=== PATIENT | female | born 1995 | race Caucasian/White ===

== ENCOUNTER 2017-05-19 23:03 | Emergency (ER) | payer BC ==
[~2017-05-19] VITALS: Ht 160 cm; Wt 74.7 kg
[2017-05-19 23:08] VITALS: Ht 160 cm; Wt 74.7 kg
[2017-05-19] MEDS ORDERED: DiphenhydrAMINE HCL 50 MG/ML VIAL IV STA (23:19)
[2017-05-19] MEDS ORDERED: FAMOTIDINE 20MG/5ML IV PUSH IV STA (23:19)
[2017-05-19] MEDS ORDERED: DEXAMETHASONE **PF** INJ 10 MG/ML VIAL IV ONE (23:30)
[2017-05-19] MEDS ORDERED: BUSP5TAB59 PO (23:44)
[2017-05-19] MEDS ORDERED: QUET1TAB30 PO (23:44)
[2017-05-19] MEDS ORDERED: LAMO25TA PO (23:44)
[2017-05-19] MEDS ORDERED: BUPR100T13 PO (23:44)
[2017-05-20] MEDS ORDERED: PRED50TA PO (00:55)
[2017-05-20] MEDS ORDERED: EPINEPHRINE ADULT AUTO-INJECT 0.3 MG SYR IM STA (00:59)
[2017-05-20 01:20] VITALS: BP 114/71; PULSE 69; TEMP 37.4; O2SAT 98
--- NOTE | 2017-05-20 01:59 | EMERGENCY ROOM VISIT NOTE ---
History First contact with patient: 23:13 Chief Complaint: FACIAL PAIN/INJURY Stated Complaint: TROUBLE SWALLOWING, SWOLLEN TONGUE History of Present Illness The patient is a 22 year old female who presents to the Emergency Room with complaints of tongue swelling difficulty swallowing and itching for the past day that is slightly better after taking Benadryl. Patient was placed on Augmentin a few days ago for a ingrown toenail. Patient has an allergy to penicillins. She is a history of hives from this. Patient denies chest pain, dyspnea, facial swelling, abdominal pain, vision problems, numbness, tingling, feeling of impending doom. Patient is able to swallow. Patient states she feels a lot better after the Benadryl though. No other new foods soaps or detergents. Review of Systems See HPI for pertinent positives & negatives. A total of 10 systems reviewed and were otherwise negative. Past Medical/Surgical History Bipolar, depression, anxiety Social History Smoking Status: Never Smoker Smokeless Tobacco Use: No Alcohol Use: occasionally Drug Use: none Occupation Status: [employer] student Current/Historical Medications Scheduled Bupropion Hcl (Wellbutrin), 1 TAB PO DAILY Buspirone Hcl (Buspirone Hcl), 1 TAB PO BID Lamotrigine (Lamictal), 1 TAB PO BID Prednisone (Prednisone), 50 MG PO DAILY Quetiapine Fumarate (Seroquel), 1 TAB PO DAILY Physical Exam Vital Signs Date Time Temp Pulse Resp B/P (MAP) Pulse Ox O2 Delivery O2 Flow Rate FiO2 05/20/17 01:20 37.4 69 18 114/71 98 05/20/17 01:10 69 18 114/71 98 Room Air 05/20/17 00:22 81 18 119/78 99 Room Air 05/19/17 23:47 87 05/19/17 23:35 Room Air 05/19/17 23:35 Room Air 05/19/17 23:08 37.4 95 18 143/93 99 Room Air Physical Exam VITALS: Vitals are noted on the nurse's note and reviewed by myself. Vital signs stable. GENERAL: Pleasant female speaking in full sentences maintaining her own secretions, in no acute distress, nondiaphoretic, well-developed well-nourished. SKIN: The skin was without rashes, erythema, edema, or bruising. There is no tenting of the skin. Capillary reflex less than 2 seconds. HEAD: Normocephalic atraumatic. EARS: External auditory canals clear, tympanic membranes pearly villar without erythema or effusion bilaterally. EYES: Pupils equal round and reactive to light and accommodation. Conjunctivae without injection, sclerae without icterus. Extraocular movements intact. NOSE: Patent, turbinates without inflammation or discharge. MOUTH: Mucous membranes moist. Pharynx without erythema or exudate. Uvula midline. Airway patent. Tongue does not deviate. No tongue edema. NECK: Supple without nuchal rigidity. No lymphadenopathy. No thyromegaly. Cervical spine is nontender. No JVD. HEART: Regular rate and rhythm without murmurs gallops or rubs. LUNGS: Clear to auscultation bilaterally without wheezes, rales or rhonchi. No dullness to percussion. No retractions or accessory muscle use. ABDOMEN: Positive bowel sounds x 4. Normal tympanic percussion. Soft, nontender, without masses or organomegaly. Feliciano sign negative. No guarding or rebound tenderness. MUSCULOSKELETAL: No muscle atrophy, erythema, or edema noted. NEURO: Patient was alert and oriented to person place and time. Normal sensation to light and sharp touch. No focal neurological deficits. Medical Decision & Procedures Medications Administered Medications (Trade) Dose Ordered Sig/Gentry Route Start Time Stop Time Status Last Admin Dose Admin Dexamethasone Sodium Phosphate (Dexamethasone Inj Pf) 10 mg NOW ONCE IV 05/19/17 23:30 05/19/17 23:31 DC 05/19/17 23:36 10 MG Famotidine (Pepcid 20mg Iv Push) 20 mg ONE STAT IV 05/19/17 23:19 05/19/17 23:20 DC 05/19/17 23:36 20 MG Diphenhydramine HCl (Benadryl Inj) 50 mg NOW STAT IV 05/19/17 23:19 05/19/17 23:20 DC 05/19/17 23:36 50 MG Epinephrine (Epipen) 0.3 mg NOW STAT IM 05/20/17 00:59 05/20/17 01:00 DC 05/20/17 01:15 0.3 MG ED Course Prior records/ancillary studies reviewed. Triage Nursing notes reviewed. Additional history obtained from friends The patient's history was concerning for possible allergic reaction. Differential diagnosis: Etiologies such as allergic reaction, anaphylaxis, urticaria, Bajwa-Chaitanya syndrome, toxic epidermal necrolysis, erythema multiforme, cellulitis, as well as others were entertained. Physical examination: As above. ER treatment provided: Continuous cardiac monitoring Benadryl 50 mg IV Zantac 50 mg IV Decadron 10 mg IV On reassessment the patient felt better. Diagnostic interpretation by me: Deferred It appears the patient had an allergic reaction. Patient has an allergy to penicillins. Most likely the Augmentin is triggering this current reaction. Patient was informed to stop the Augmentin. She has an appointment tomorrow to have the toenail removed. She is advised to do Epsom salt soaks and to go ahead with the procedure for the ingrown toenail. Patient states she felt much better and was completely asymptomatic. She had no current airway involvement. She did not have any symptoms when she was in the ER. Apparently this had resolved after she had taken the Benadryl. She was strongly encouraged not to take any penicillin-based antibiotics in the future and pavel this as a allergy. She is advised to return to the ER immediately for reemergence of allergic reaction, worsening signs or symptoms or as needed. Patient was neurovascularly and neurologically intact. She had no airway involvement. She is speaking in full sentences and maintaining her secretions. The above treatment did well to reverse the symptoms. After prolonged monitoring and frequent reassessments the patient did very well and symptoms resolved. The patient was counseled on the spectrum of this disease process and told to avoid potential triggers. I gave my usual and customary discussion regarding this issue. By the evaluation outlined above emergent etiologies such as recurring anaphylaxis, anaphylatic shock, airway compromise, Bajwa-Chaitanya syndrome, toxic epidermal necrolysis, erythema multiforme, infectious etiologies, as well as others were deemed relatively unlikely. The pt informed about the findings as listed above. All questions were answered and pleased with the treatment. Return instructions were outlined and the patient was discharged in stable condition. Outpatient prescription management: EpiPen prednisone Referral: The patient was referred back to primary care physician for follow-up in 2-3 days for a recheck of the current condition. Medical Decision As above Medication Reconcilliation Current Medication List: was personally reviewed by me Blood Pressure Screening Patient's blood pressure: Normal blood pressure Impression Primary Impression: Allergic reaction Departure Information Dispostion Home / Self-Care Condition GOOD Prescriptions Prednisone (Prednisone) 50 Mg Tab 50 MG PO DAILY for 4 Days, #4 TAB Prov: Blossom Tavares .SANDEEP 05/20/17 Forms HOME CARE DOCUMENTATION FORM, IMPORTANT VISIT INFORMATION Patient Instructions My [facility], ED Allergic Reaction General Other Additional Instructions Do not take penicillins or Augmentin again in the future. Pavel this as an allergy. Continue to do Epsom soaks to the foot 3 times a day. Have your toenail taken care of tomorrow. DO NOT drive, drink alcohol, operate machinery, or perform dangerous activities today. You were given medications in the ER that can affect your ability to safely function or operate a vehicle. Epi-Pen: Use one injection as instructed for severe allergic reactions associated with shortness of breath, difficulty breathing, or throat or tongue swelling. If you use this injection call 911 or proceed immediately to the nearest Emergency Room. Prednisone 50mg: Once daily until the prescription is finished. It is best to take this earlier in the day as some patients note occasional difficulty falling asleep when taken in the late evening. Diphenhydramine(Benadryl) 25mg: use 25 to 50 mg every six hours for swelling, itching, or hives. This medication is sedating and will cause drowsiness. Avoid alcohol, operating machinery or dangerous equipment, working on ladders or roofs, DRIVING, or situations where being under the influence may be dangerous. Zantac 75: Take two pills twice a day along with Benadryl as needed for swelling , itching, or hives. Most people know this for its affect on the stomach, but it also acts similar to, but less potent than Benadryl for allergic reactions. Both the Benadryl and the Zantac are available [id number]. Continue current medications. Return to the emergency department for worsening of your rash, swelling of your face, lips, tongue, or throat, difficulty breathing, vomiting, or as needed. Follow-up with your primary care physician in 2 to 3 days for a recheck of your current condition. Problem Qualifiers Primary Impression: Allergic reaction Encounter type: initial encounter Qualified Codes: T78.40XA - Allergy, unspecified, initial encounter
== END 2017-05-20 01:20 | disposition home or self-care (01) ==
LOC: C.EDB 23:07 → C.EDC 05-20 01:20
DX: T78.40XA Allergy, unspecified, initial encounter (principal); Z79.899 Other long term (current) drug therapy; X58.XXXA Exposure to other specified factors, initial encounter

== ENCOUNTER 2017-09-17 00:11 | Emergency (ER) | payer BC ==
[~2017-09-17] VITALS: Ht 162.6 cm; Wt 72.3 kg
[~2017-09-17 00:11] MED LIST: BUPR100T13 PO; BUSP5TAB59 PO; LAMO25TA PO; QUET1TAB30 PO
[2017-09-17 00:13] VITALS: TEMP 37.3; Ht 162.6 cm; Wt 72.3 kg
[2017-09-17] MEDS ORDERED: LORAZEPAM 1 MG TAB SL STA (00:39)
[2017-09-17] MEDS ORDERED: BUPR150T7 PO (00:48)
[2017-09-17 00:59] LABS: BASO % 0.4 %; BASO ABS # 0.03 K/uL (0-0.2); EOS % 0.9 %; EOS ABS # 0.06 K/uL (0-0.5); HEMATOCRIT 37.6 % (37-47); IG# 0.01 K/uL (0.00-0.02); LYMPH % 22.6 %; LYMPH ABS # 1.52 K/uL (1.2-3.4); MEAN CELL VOLUME 85.8 fL (80-100); MEAN CORPUSCULAR HGB CONC 37.2 g/dl (32-36); MEAN PLATELET VOLUME 9.2 fL (7.4-10.4); MONO % 11.6 %; MONO ABS # 0.78 K/uL (0.11-0.59); NEUT % 64.4 %; NEUT ABS # 4.34 K/uL (1.4-6.5); PLATELET COUNT 227 K/uL (130-400); RED CELL DISTRIBUTION WIDTH CV 12.2 % (11.5-14.5); RED CELL DISTRIBUTION WIDTH SD 37.9 fL (36.4-46.3); WHITE BLOOD COUNT 6.74 K/uL (4.8-10.8)
[2017-09-17 01:31] LABS: ALBUMIN 3.4 gm/dl (3.4-5.0); CALCIUM 8.1 mg/dl (8.5-10.1); CREATININE 0.82 mg/dl (0.60-1.20); POTASSIUM 3.5 mmol/L (3.5-5.1); TOTAL PROTEIN 6.1 gm/dl (6.4-8.2)
[2017-09-17 02:08] VITALS: BP 130/68; PULSE 87; O2SAT 100
[2017-09-17] MEDS ORDERED: ATIVAN 1MG HOMEPACK PO ONE (02:45)
--- NOTE | 2017-09-18 02:26 | EMERGENCY ROOM VISIT NOTE ---
History First contact with patient: 00:18 Chief Complaint: ANXIETY Stated Complaint: ANXIETY,TIGHT CHEST, PANICY History of Present Illness The patient is a 22 year old female who presents to the Emergency Room with complaints of chest discomfort, anxiety, and panic attack-like symptoms that have worsened tonight. The patient reports a long-standing history of bipolar disorder that is typically well controlled on her normal medications. Patient states that she was at work tonight when she began having worsening anxiety symptoms. She contacted her psychiatrist at some point, and was given a prescription for Atarax. This did not significantly help her symptoms, and now she presents to the ER. She does not have suicidal or homicidal ideation. No fevers or chills. She does feel like her heart is racing but she denies other symptoms. She states that she was able to sleep fairly well yesterday as well as do her normal activities of daily living this morning. Her symptoms onset within the past 12 hours. She is planning on traveling home to [place] in the morning. 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 She does not do drugs. She occasionally uses alcohol, but has not had this in the past month. Review of Systems More than 10 systems were reviewed and otherwise negative with the exception of history of present illness. Past Medical/Surgical History History of bipolar disorder Family History No pertinent family history Social History Smoking Status: Never Smoker Alcohol Use: occasionally Drug Use: none Occupation Status: [employer] student Current/Historical Medications Scheduled Bupropion Hcl (Wellbutrin Sr), 150 MG PO DAILY Buspirone Hcl (Buspirone Hcl), 30 MG PO BID Lamotrigine (Lamictal), 200 MG PO BID Quetiapine Fumarate (Seroquel), 50 MG PO HS Physical Exam Vital Signs Date Time Temp Pulse Resp B/P (MAP) Pulse Ox O2 Delivery O2 Flow Rate FiO2 09/17/17 02:08 87 18 130/68 100 Room Air 09/17/17 00:13 37.3 110 18 140/75 100 Room Air Physical Exam VITALS: Vitals are noted on the nurse's note and reviewed by myself. Vital signs stable. GENERAL: Well-developed, well-nourished, white female, who is intermittently crying and appears emotional on examination HEAD: Normocephalic atraumatic. EARS: External ear normal. External auditory canals clear, tympanic membranes pearly villar without erythema or effusion bilaterally. EYES: Pupils equal round and reactive to light and accommodation. Conjunctivae without injection, sclerae without icterus. Extraocular movements intact. NOSE: Patent, turbinates without inflammation or discharge. MOUTH: Mucous membranes moist. Tonsils are not enlarged. Pharynx without erythema, blood, or exudate. Uvula midline. Airway patent. NECK: Supple without nuchal rigidity. No lymphadenopathy. No thyromegaly. Cervical spine is nontender. HEART: Regular rate and rhythm without murmurs gallops or rubs. LUNGS: Clear to auscultation bilaterally without wheezes, rales or rhonchi. No retractions or accessory muscle use. ABDOMEN: Positive normal bowel sounds x 4. Soft, nontender, without masses or organomegaly. No guarding or rebound tenderness. MUSCULOSKELETAL: No muscle atrophy, erythema, or edema noted. Full range of motion in all extremities. No tenderness to palpation. Normal gait. Strength 5/5 throughout. NEURO: Patient was alert and oriented to person place and time. CN II through XII grossly intact. No focal neurological deficits. Deep tendon reflexes 2+ throughout. SKIN: The skin was without rashes, erythema, edema, or bruising. Capillary refill less than 2 seconds. Medical Decision & Procedures Laboratory Results 09/17/17 00:51 Red Blood Count 4.38, Mean Corpuscular Volume 85.8, Mean Corpuscular Hemoglobin 32.0, Mean Corpuscular Hemoglobin Concent 37.2, Mean Platelet Volume 9.2, Neutrophils (%) (Auto) 64.4, Lymphocytes (%) (Auto) 22.6, Monocytes (%) (Auto) 11.6, Eosinophils (%) (Auto) 0.9, Basophils (%) (Auto) 0.4, Neutrophils # (Auto ) 4.34, Lymphocytes # (Auto) 1.52, Monocytes # (Auto) 0.78, Eosinophils # (Auto ) 0.06, Basophils # (Auto) 0.03 09/17/17 00:51 Test 09/17/17 00:39 09/17/17 00:51 Urine Color DK YELLOW Urine Appearance CLEAR (CLEAR) Urine pH 5.0 (4.5-7.5) Urine Specific [place] 1.031 (1.000-1.030) Urine Protein NEG (NEG) Urine Glucose (UA) NEG (NEG) Urine Ketones TRACE (NEG) Urine Occult Blood NEG (NEG) Urine Nitrite NEG (NEG) Urine Bilirubin NEG (NEG) Urine Urobilinogen POS (NEG) Urine Leukocyte Esterase NEG (NEG) Urine Test NEG (NEG) Urine Opiates Screen NEG (NEG) Urine Methadone, Qualitative NEG (NEG) Urine Barbiturates NEG (NEG) Urine Phencyclidine (PCP) Level NEG (NEG) Ur Amphetamine/Methamphetamine NEG (NEG) MDMA (Ecstasy) Screen NEG (NEG) Urine Benzodiazepines Screen NEG (NEG) Urine Cocaine Metabolite NEG (NEG) Urine Marijuana (THC) NEG (NEG) White Blood Count 6.74 K/uL (4.8-10.8) Red Blood Count 4.38 M/uL (4.2-5.4) Hemoglobin 14.0 g/dL (12.0-16.0) Hematocrit 37.6 % (37-47) Mean Corpuscular Volume 85.8 fL (80-100) Mean Corpuscular Hemoglobin 32.0 pg (25-34) Mean Corpuscular Hemoglobin Concent 37.2 g/dl (32-36) Platelet Count 227 K/uL (130-400) Mean Platelet Volume 9.2 fL (7.4-10.4) Neutrophils (%) (Auto) 64.4 % Lymphocytes (%) (Auto) 22.6 % Monocytes (%) (Auto) 11.6 % Eosinophils (%) (Auto) 0.9 % Basophils (%) (Auto) 0.4 % Neutrophils # (Auto) 4.34 K/uL (1.4-6.5) Lymphocytes # (Auto) 1.52 K/uL (1.2-3.4) Monocytes # (Auto) 0.78 K/uL (0.11-0.59) Eosinophils # (Auto) 0.06 K/uL (0-0.5) Basophils # (Auto) 0.03 K/uL (0-0.2) RDW Standard Deviation 37.9 fL (36.4-46.3) RDW Coefficient of Variation 12.2 % (11.5-14.5) Immature Granulocyte % (Auto) 0.1 % Immature Granulocyte # (Auto) 0.01 K/uL (0.00-0.02) Anion Gap 6.0 mmol/L (3-11) Est Creatinine Clear Calc Drug Dose 106.7 ml/min Estimated GFR () 119.4 Estimated GFR (Non- 103.0 BUN/Creatinine Ratio 9.4 (10-20) Calcium Level 8.1 mg/dl (8.5-10.1) Total Bilirubin 1.0 mg/dl (0.2-1) Aspartate Amino Transf (AST/SGOT) 14 U/L (15-37) Alanine Aminotransferase (ALT/SGPT) 18 U/L (12-78) Alkaline Phosphatase 45 U/L (45-117) Total Protein 6.1 gm/dl (6.4-8.2) Albumin 3.4 gm/dl (3.4-5.0) Globulin 2.7 gm/dl (2.5-4.0) Albumin/Globulin Ratio 1.3 (0.9-2) Thyroid Stimulating Hormone (TSH) 2.390 uIu/ml (0.300-4.500) Salicylates Level < 1.7 mg/dl (2.8-20) Acetaminophen Level < 2 ug/ml (10-30) Medications Administered Medications (Trade) Dose Ordered Sig/Gentry Route Start Time Stop Time Status Last Admin Dose Admin Lorazepam (Ativan Tab) 1 mg NOW STAT SL 09/17/17 00:39 09/17/17 00:42 DC 09/17/17 00:48 1 MG Lorazepam (Ativan 1MG Home Pack) 1 homepack UD ONCE PO 09/17/17 02:45 09/17/17 02:46 DC 09/17/17 02:42 1 HOMEPACK ED Course Physical exam and history were performed. Nursing notes, EMR, and Medication List were personally reviewed. Patient appears to have anxiety symptoms that have worsened over the past several hours. The patient is well spoken and seems very aware of her mental health condition. On examination she is intermittently crying but very cooperative with the examination. I discussed options of care with her, and she was willing to trial Ativan orally. Blood work was obtained and we were able to obtain a urine sample. Patient's blood work is as above and was reviewed. She does not have a significantly elevated white blood cell count, gross anemia, bandemia, or significant electrolyte imbalance. Lipase and transaminases are not diagnostic. TSH is euthyroid state. Urine was without evidence of infection or . Drug of abuse screen was negative. Tylenol and salicylates were 0. The patient was much improved after Ativan here in the department. I did ask the mental health liaison to evaluate the patient, which was performed. Please see their note for specifics. Overall we do not feel the patient requires involuntary admission. The patient herself feels comfortable with discharge home and does not wish to stay here in the hospital. She will be given a home pack of Ativan to help with the acute anxiety symptoms. The patient does have good resources as an outpatient, and is comfortable with contacting her providers in the morning. The patient understands that she is invited back to the ER with any new, worsening, or concerning symptoms. She was pleased with this plan and voiced understanding. The chart was completed utilizing [employer] Speech Voice Recognition Software. Grammatical errors, random word insertions, pronoun errors, and incomplete sentences are an occasional consequence of this system due to software limitations, ambient noise, and hardware issues. Any formal questions or concerns about the content, text, or information contained within the body of this dictation should be directly addressed to the provider for clarification. . Medical Decision Differential diagnosis: Etiologies such as mood disorder, infection, hypoglycemia, electrolyte abnormalities, cardiac sources, intracerebral event, toxicologic, neurologic, as well as others were entertained. Impression Primary Impression: Anxiety Departure Information Dispostion Home / Self-Care Condition GOOD Forms HOME CARE DOCUMENTATION FORM, IMPORTANT VISIT INFORMATION Patient Instructions My [facility] Additional Instructions You were seen and evaluated today on an emergency basis only. This is not a substitute for, or an effort to provide, complete comprehensive medical care. It is not possible to recognize and treat all injuries or illnesses in a single emergency department visit. For this reason it is recommended that you followup with your providers for ongoing care and evaluation. Consider using Ativan 1/2 to 1 full pill every 8 hours as needed for symptoms. Do not drink or drive while on this medication as it will make you tired. You are welcome to return to the emergency department anytime with new, worsening, or concerning symptoms.
== END 2017-09-17 02:43 | disposition home or self-care (01) ==
LOC: C.EDB 00:12
DX: F41.9 Anxiety disorder, unspecified (principal); F31.9 Bipolar disorder, unspecified; Z79.899 Other long term (current) drug therapy

== ENCOUNTER 2019-01-28 13:36 | Observation (INO) ==
[2019-01-28] MEDS ORDERED: SODIUM CHLORIDE 0.9% 1000ML 1,000 ML IV ONE (14:49)
[2019-01-28] MEDS ORDERED: ONDANSETRON INJ 2 MG/ML 2 ML VIAL IV STA (14:49)
[2019-01-28] MEDS ORDERED: KETOROLAC TROMETHAMINE 15 MG/ML VIAL IV STA (14:49)
[2019-01-28 15:36] LABS: Basophils # (auto) 0.02 K/uL (0-0.2); Basophils % (auto) 0.1 %; Eosinophils # (auto) 0.01 K/uL (0-0.5); Eosinophils % (auto) 0.1 %; Hematocrit (blood only) 40.8 % (37-47); Hemoglobin 14.8 g/dL (12.0-16.0); Immature Granulocytes # (auto) 0.03 K/uL (0.00-0.02); Immature Granulocytes % (auto) 0.2 %; Lymphocytes # (auto) 0.67 K/uL (1.2-3.4); Lymphocytes % (auto) 4.9 %; Mean Corpuscular Hemoglobin 32.5 pg (25-34); Mean Corpuscular Hgb Conc 36.3 g/dL (32-36); Mean Corpuscular Volume 89.5 fL (80-100); Mean Platelet Volume 9.9 fL (7.4-10.4); Monocytes # (auto) 0.97 K/uL (0.11-0.59); Monocytes % (auto) 7.2 %; Neutrophils # (auto) 11.85 K/uL (1.4-6.5); Neutrophils % (auto) 87.5 %; Platelet Count 257 K/uL (130-400); RDW Coefficient of Variation 12.1 % (11.5-14.5); RDW Standard Deviation 38.8 fL (36.4-46.3); Red Blood Count 4.56 M/uL (4.2-5.4); White Blood Count 13.55 K/uL (4.8-10.8)
[2019-01-28 15:42] LABS: Albumin Level 3.9 gm/dl (3.4-5.0); BUN Creatinine Ratio 10.9 (10-20); Calcium 8.8 mg/dl (8.5-10.1); Creatinine Clr Calc Pharmacy 107.5 ml/min; Est GFR (Non-African American) 108.7; Potassium 3.6 mmol/L (3.5-5.1)
[2019-01-28 15:45] LABS: Albumin Globulin Ratio 1.3 (0.9-2); Bilirubin,Total 1.6 mg/dl (0.2-1); Globulin 3.1 gm/dl (2.5-4.0)
[2019-01-28] MEDS ORDERED: IOVERSOL 100ml IV PRN (17:02)
--- NOTE | 2019-01-28 17:11 | CT Scan Report ---
CT OF THE ABDOMEN AND PELVIS WITH CONTRAST CLINICAL HISTORY: Right lower quadrant abdominal pain, fever and vomiting. COMPARISON STUDY: None. TECHNIQUE: Following IV administration of 89 mL of Optiray-320, axial images of the abdomen and pelvi s were obtained from the lung bases to the proximal femurs. Images were reviewed in the axial, sagitt al, and coronal planes. IV contrast was administered without complication. Automated exposure contro l was utilized for the study. A dose lowering technique was utilized adhering to the principles of A TIMOTHY. CT DOSE: 352.48 mGy.cm FINDINGS: Lung bases are clear. No pneumatosis, free air or portal venous gas is present. The liver, spleen, adrenal glands, kidneys and pancreas are normal. There is no biliary or pancreatic ductal dil atation. There is no hydronephrosis. Nephrograms are symmetric. Major vasculature is patent. A small amount of fluid within the pelvis is noted. The appendix is mildly dilated, measuring 8 mm in caliber . The appendix is fluid-filled. There is suggestion of minimal adjacent infiltration. The appendix is located along the medial aspect of the right iliac vessels. No abscess or free air is noted. There i s no evidence for a bowel obstruction. No suspicious osseous lesions are noted. IMPRESSION: 1. Mildly dilated appendix with minimal adjacent infiltration. The findings suggest early acute appen dicitis. No free air or abscess. 2. Small amount of fluid within the pelvis. Electronically signed by: Ming Alvarez M.D. 01/28/2019 5:10 PM
--- NOTE | 2019-01-28 17:23 | Emergency Department Note ---
Entered by Tali Love acting as a scribe for Barrington Navarro MD History of Present Illness General Chief complaint: Abdominal Pain Stated complaint: VOMITING, RLQ PAIN, FEVER Time Seen by Provider: 01/28/19 14:40 Source: patient History of Present Illness Onset (ago): hour(s) 10 Location: abdomen Radiation: non-radiation Severity: severe and similar to prior episodes Pain Consistency: + other (Worsening) Maximum Pain Intensity: 10 Quality: + other (Abdominal pain) Associated symptoms: + fever/chills, + loss of appetite and + nausea/vomiting; no other (Diarrhea) Treatments prior to arrival: none The patient is a 23 year old female who presents to the Emergency Department complaining of worsening abdominal pain starting 10 hours ago. The patient reports that she has severe, non-radiating, lower middle abdominal pain. 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 She explains that she is nauseous and has vomited. She currently rates her pain 7/10. She notes that she has lost her appetite. She adds that she was in the ED earlier today at 0900 for similar symptoms. The patient reports that when she was in the ED today she had an US and a urine analysis that was negative. She states that since leaving the hospital this morning her temperature increased and she began to vomit. She adds that she took no medications for her symptoms BARTENDER SERVER. The patient denies diarrhea, eating anything abnormal, history of abdominal surgeries and history DM. Home Medications Home Medications Medication Instructions Recorded Confirmed Type bupropion HCl [Wellbutrin SR] 100 mg PO DAILY 02/18/18 01/28/19 History buspirone 30 mg PO BID 02/18/18 01/28/19 History lamotrigine 200 mg PO BID 02/18/18 01/28/19 History clonazepam 0.5 mg PO BID PRN 01/28/19 01/28/19 History famotidine 20 mg PO BID #20 tab 01/28/19 01/28/19 Rx prochlorperazine maleate 10 mg PO Q6H PRN #14 tab 01/28/19 01/28/19 Rx Allergies Allergy/AdvReac Type Severity Reaction Status Date / Time Penicillins Allergy Severe rash Verified 01/28/19 10:45 pseudoephedrine Allergy Severe hallucinati Verified 01/28/19 10:45 ons Past Med/Surg History Medical History Anxiety (Acute) Bipolar disorder Family History Other No pertinent family history in first degree relatives Social History Preferred Language: Dominican Epoxy Specialist Required: No Beliefs That Will Affect Care: None Current Living Situation Comment: 2 roommates current occupational status: student Other Information That Helps Us Care for You: No Feels Safe at Home: Yes Safety Concerns: Feels Safe At This Time Smoking Status: Never smoker Do You Dip or Chew Tobacco: No ; Second Hand Exposure: No ; Tobacco Cessation Education Requested by Patient: No Hx Alcohol Use: Yes Hx Substance Use: No Review of Systems See HPI for pertinent positives & negatives. and A total of 10 systems reviewed and were otherwise negative Physical Exam Vital Signs Vital Signs - 24 hr 01/28/19 13:43 01/28/19 16:26 01/28/19 17:35 Temperature 37 C Temperature Source Oral Sepsis Recent Fever Within 48 Hours No Sepsis New/Unexplained Change in Mental Status No Sepsis Action Taken by Nursing No Action Required Pulse Rate 101 H Pulse Rate [Right Finger] 73 76 Pulse Rhythm [Right Finger] Regular Pulse Strength [Right Finger] Normal Respiratory Rate 20 20 20 Respiratory Effort / Characteristics Non-Labored Spontaneous Non-Labored Spontaneous Respiratory Depth Normal Normal Respiratory Pattern Regular Regular Blood Pressure 123/97 Blood Pressure [Right Arm] 107/63 127/86 Blood Pressure Mean 105 Blood Pressure Mean [Right Arm] 77 99 Pulse Oximetry 97 100 97 Oxygen Delivery Method Room Air Room Air Room Air 01/28/19 18:20 Temperature Temperature Source Sepsis Recent Fever Within 48 Hours Sepsis New/Unexplained Change in Mental Status Sepsis Action Taken by Nursing Pulse Rate Pulse Rate [Right Finger] 70 Pulse Rhythm [Right Finger] Pulse Strength [Right Finger] Respiratory Rate 20 Respiratory Effort / Characteristics Non-Labored Spontaneous Respiratory Depth Normal Respiratory Pattern Blood Pressure Blood Pressure [Right Arm] 132/85 Blood Pressure Mean Blood Pressure Mean [Right Arm] 100 Pulse Oximetry 98 Oxygen Delivery Method Room Air GENERAL: Patient is in no acute distress. HEENT: No acute trauma, normocephalic atraumatic, mucous membranes moist, no nasal congestion, no scleral icterus. NECK: No stridor, no adenopathy, no meningismus, trachea is midline. LUNGS: Clear to auscultation bilaterally, no wheeze, no rhonchi, breath sounds equal. HEART: Without murmurs gallops or rubs, regular rate and rhythm. ABDOMEN: Moderately tender in RLQ. Mildly tender in the LLQ. Soft, bowel sounds positive, no hernias, no peritonitis. EXTREMITIES: No cyanosis or edema, full range of motion of all the joints without pain or difficulty, no signs for acute trauma. NEUROLOGIC: Oriented x 3, no acute motor or sensory deficits, no focal weakness. SKIN: No rash, no jaundice, no diaphoresis. Course 1441: The patient was evaluated in room C2B, and a complete history and physical examination were performed. 1446: EMR reviewed. UA from today was negative for infection or blood. testing negative. When the patient was here this morning she did not have a fever and was not tachycardic. 1710: I discussed the patient's case with Dr. Millan - general surgeon. He will evaluate the patient for further management. 1718: I reevaluated the patient at this time. I updated her on her imaging studies. Consultations Consultation #1: I discussed the patient's case with Dr. Millan - general surgeon. He will evaluate the patient for further management. Time: 17:10 Administered Medications Buspirone HCl (Buspar) 30 mg PO BID VARSHA Stop: 02/27/19 20:59 Last Admin: 01/28/19 21:43 Dose: 30 mg Documented by: [id number] Famotidine (Pepcid) 20 mg PO BID VARSHA Stop: 02/27/19 20:59 Last Admin: 01/28/19 21:45 Dose: 20 mg Documented by: [id number] Lactated Ringer's (Lr) 1,000 mls @ 125 mls/hr IV .Q8H VARSHA Stop: 02/27/19 20:29 Last Admin: 01/28/19 21:35 Dose: 125 mls/hr Documented by: [id number] Ioversol (Optiray 320 100ml) 89 ml IV ONCE PRN PRN Reason: Interaction Checking Stop: 02/01/19 17:01 Last Admin: 01/28/19 17:02 Dose: 89 ml Documented by: [id number] Lamotrigine (Lamictal) 200 mg PO BID VARSHA Stop: 02/27/19 20:59 Last Admin: 01/28/19 21:44 Dose: 200 mg Documented by: [id number] Oxycodone/Acetaminophen (Percocet 5mg/325mg) 2 tab PO Q4H PRN PRN Reason: SEVERE Pain (Scale 7,8,9,10) Stop: 02/11/19 20:29 Last Admin: 01/28/19 21:36 Dose: 2 tab Documented by: [id number] Discontinued Medications Bupivacaine HCl/Epinephrine Bitart (Sensorcaine/Epinephrine 0.5% Mpf 1:200,000) Confirm Administered Dose 30 ml .ROUTE .STK-MED ONE Stop: 01/28/19 17:42 Last Admin: 01/28/19 19:27 Dose: 20 ml Documented by: [id number] Sodium Chloride (Nss 1000ml) 1,000 mls @ 999 mls/hr IV .Q1H1M ONE Stop: 01/28/19 15:49 Last Infusion: 01/28/19 21:20 Dose: 0 mls/hr Documented by: [id number] Admin: 01/28/19 15:19 Dose: 999 mls/hr Documented by: [id number] Clindamycin Phosphate (Cleocin) 600 mg in 54 mls @ 100 mls/hr IV ONCE VARSHA Stop: 01/29/19 19:29 Last Infusion: 01/28/19 21:20 Dose: 0 mls/hr Documented by: [id number] Admin: 01/28/19 18:57 Dose: 100 mls/hr Documented by: [id number] Ketorolac Tromethamine (Toradol) 15 mg IV NOW STA Stop: 01/28/19 14:50 Last Admin: 01/28/19 15:18 Dose: 15 mg Documented by: [id number] Ondansetron HCl (Zofran) 4 mg IV NOW STA Stop: 01/28/19 14:50 Last Admin: 01/28/19 15:18 Dose: 4 mg Documented by: [id number] Medical Decision Making Differential Diagnosis Differentials include appendicitis, diverticulitis, biliary colic UTI, PID, ovarian cyst, viral illness, food borne ill and dehydration amongst others. Medical Records Attestation: I reviewed the patient's medical records. Home Medications Current Medication List: was personally reviewed by me Laboratory Data Attestation: I reviewed the patient's lab results. Result diagrams: 01/28/19 15:07 01/28/19 15:07 Lab Results 01/28/19 01/28/19 Range/Units 15:07 15:07 WBC 13.55 H (4.8-10.8) K/uL RBC 4.56 (4.2-5.4) M/uL Hgb 14.8 (12.0-16.0) g/dL Hct 40.8 (37-47) % MCV 89.5 (80-100) fL MCH 32.5 (25-34) pg MCHC 36.3 H (32-36) g/dL RDW Std Deviation 38.8 (36.4-46.3) fL RDW Coeff of Pamela 12.1 (11.5-14.5) % Plt Count 257 (130-400) K/uL MPV 9.9 (7.4-10.4) fL Immature Gran % (Auto) 0.2 % Neut % (Auto) 87.5 % Lymph % (Auto) 4.9 % Major % (Auto) 7.2 % Eos % (Auto) 0.1 % Baso % (Auto) 0.1 % Immature Gran # (Auto) 0.03 H (0.00-0.02) K/uL Neut # (Auto) 11.85 H (1.4-6.5) K/uL Lymph # (Auto) 0.67 L (1.2-3.4) K/uL Major # (Auto) 0.97 H (0.11-0.59) K/uL Eos # (Auto) 0.01 (0-0.5) K/uL Baso # (Auto) 0.02 (0-0.2) K/uL Sodium 140 (136-145) mmol/L Potassium 3.6 (3.5-5.1) mmol/L Chloride 106 (98-107) mmol/L Carbon Dioxide 25 (21-32) mmol/L Anion Gap 9.0 (3-11) BUN 8 (7-18) mg/dl Creatinine 0.78 (0.6-1.2) mg/dl Est Cr Clr Drug Dosing 107.5 ml/min Est GFR ( Amer) 126.0 Est GFR (Non-Af Amer) 108.7 BUN/Creatinine Ratio 10.9 (10-20) Glucose 90 (70-99) mg/dl Calcium 8.8 (8.5-10.1) mg/dl Total Bilirubin 1.6 H (0.2-1) mg/dl AST 7 L (15-37) U/L ALT 18 (12-78) U/L Alkaline Phosphatase 63 (45-117) U/L Total Protein 7.0 (6.4-8.2) gm/dl Albumin 3.9 (3.4-5.0) gm/dl Globulin 3.1 (2.5-4.0) gm/dl Albumin/Globulin Ratio 1.3 (0.9-2) Lipase 81 (73-393) U/L Imaging Data Radiologist's Impression: Radiology results as stated below per my review and the radiologist's interpretation: CT OF THE ABDOMEN AND PELVIS WITH CONTRAST CLINICAL HISTORY: Right lower quadrant abdominal pain, fever and vomiting. COMPARISON STUDY: None. TECHNIQUE: Following IV administration of 89 mL of Optiray-320, axial images of the abdomen and pelvis were obtained from the lung bases to the proximal femurs. Images were reviewed in the axial, sagittal, and coronal planes. IV contrast was administered without complication. Automated exposure control was utilized for the study. A dose lowering technique was utilized adhering to the principles of ALARA. CT DOSE: 352.48 mGy.cm FINDINGS: Lung bases are clear. No pneumatosis, free air or portal venous gas is present. The liver, spleen, adrenal glands, kidneys and pancreas are normal. There is no biliary or pancreatic ductal dilatation. There is no hydronephrosis. Nephrograms are symmetric. Major vasculature is patent. A small amount of fluid within the pelvis is noted. The appendix is mildly dilated, measuring 8 mm in caliber. The appendix is fluid-filled. There is suggestion of minimal adjacent infiltration. The appendix is located along the medial aspect of the right iliac vessels. No abscess or free air is noted. There is no evidence for a bowel obstruction. No suspicious osseous lesions are noted. IMPRESSION: 1. Mildly dilated appendix with minimal adjacent infiltration. The findings suggest early acute appendicitis. No free air or abscess. 2. Small amount of fluid within the pelvis. Electronically signed by: Ming Villalpando Blood Pressure Blood Pressure Findings: Elevated blood pressure Blood Pressure Disposition: further management by hospitalist [facility] Narrative There is a mild leukocytosis, this could be consistent with infection. No concerning anemia. Bilirubin was mildly elevated, the rest of the LFTs were normal. There was no evidence for pancreatitis. Urinalysis from earlier today did not show infection. The testing was negative. Patient was tender in the right lower quadrant. A CT of the abdomen pelvis was performed, she does have a appendicitis based on the CT reading. There was no abscess or rupture. Patient received IV saline, she was given IV Toradol, IV Zofran, she is comfortable. I spoke to the patient about her findings, case management has been made aware. The on-call surgeon has been consulted. Impression & Plan Acute appendicitis, Abdominal pain, RLQ, Leukocytosis Discharge Plan Visit Data *Final* Discharge Date/Time: 01/28/19 18:22 Chief Complaint: Abdominal Pain Stated Complaint: VOMITING, RLQ PAIN, FEVER ED Provider: Barrington Navarro Discharge Problem: Acute appendicitis, Abdominal pain, RLQ, Leukocytosis Patient Disposition: Admitted As Inpatient Discharge Instructions Interventions: ED Discharge Assessment Last Done: 01/28/19 18:22 Discharge Problem: Acute appendicitis Qualifiers: Acute appendicitis type: unspecified acute appendicitis type Qualified Code(s): K35.80 - Unspecified acute appendicitis Leukocytosis Qualifiers: Leukocytosis type: unspecified Qualified Code(s): D72.829 - Elevated white blood cell count, unspecified The scribe's documentation has been prepared under my direction and personally reviewed by me in its entirety. I confirm that the note above accurately reflects all work, treatment, procedures, and medical decision making performed by me.
[2019-01-28] MEDS ORDERED: BUPIVACAINE/EPINEPHRINE 0.5% MPF 1:200,000 30 ML VIAL ONE (17:41)
[2019-01-28] MEDS ORDERED: GLYCOPYRROLATE 0.2 MG/ML VIAL ONE (18:04)
[2019-01-28] MEDS ORDERED: fentaNYL citrate 100 MCG/2 ML VIAL ONE ×2 (18:04→19:23)
[2019-01-28] MEDS ORDERED: MIDAZOLAM HCL 1 MG/ML 2ML VIAL ONE (18:04)
[2019-01-28] MEDS ORDERED: PROPOFOL IV EMULSION 10 MG/ML 20 ML VIAL IV ONE (18:04)
[2019-01-28] MEDS ORDERED: ROCURONIUM BROMIDE 10 MG/ML 5 ML VIAL ONE (18:04)
[2019-01-28] MEDS ORDERED: DEXAMETHASONE SOD INJ 4 MG/ML VIAL ONE (18:04)
[2019-01-28] MEDS ORDERED: SUCCINYLCHOLINE CHLORIDE 20 MG/ML 10 ML VIAL ONE (18:04)
[2019-01-28] MEDS ORDERED: ONDANSETRON INJ 2 MG/ML 2 ML VIAL ONE (18:04)
--- NOTE | 2019-01-28 18:13 | History & Physical Report ---
Date of Service January 28, 2019 Assessment & Plan (1) Acute appendicitis: I spoke to her and her mother. We discussed options as well as risks of the procedure which would include bleeding, infection, DVT, PE, injury to another organ, staple line leaks etc. Following all this I answered their questions. We will proceed POONAM for laparoscopic possible open appendectomy. 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 She presents this afternoon to the emergency room where work-up has revealed acute appendicitis on CAT scan. Allergies Allergy/AdvReac Type Severity Reaction Status Date / Time Penicillins Allergy Severe rash Verified 01/28/19 10:45 pseudoephedrine Allergy Severe hallucinati Verified 01/28/19 10:45 ons Home Medications Home Medications Medication Instructions Recorded Confirmed Type bupropion HCl [Wellbutrin SR] 100 mg PO DAILY 02/18/18 01/28/19 History buspirone 30 mg PO BID 02/18/18 01/28/19 History lamotrigine 200 mg PO BID 02/18/18 01/28/19 History clonazepam 0.5 mg PO BID PRN 01/28/19 01/28/19 History famotidine 20 mg PO BID #20 tab 01/28/19 01/28/19 Rx prochlorperazine maleate 10 mg PO Q6H PRN #14 tab 01/28/19 01/28/19 Rx Past Med/Surg History Medical History Anxiety (Acute) Bipolar disorder Family History Other No pertinent family history in first degree relatives Social History current occupational status: student Feels Safe at Home: Yes Smoking Status: Never smoker Review of Systems All systems reviewed & are unremarkable except as noted in HPI & below Physical Exam Constitutional: WD/WN, vitals as above no acute distress and not ill appearing Eyes: PERRL, conjunctivae normal, anicteric sclerae EOM intact bilaterally ENMT: external ear and nose normal, oropharynx normal Ears: no hearing impairment Neck: trachea midline, no thyromegaly Respiratory: normal respiratory effort; no respiratory distress and does not use accessory muscles Cardiovascular: Rate/Rhythm: regular rate and regular rhythm Gastrointestinal (Abdomen): soft. +RLQ ttp. +guarding/rovsings Skin: no rashes, warm and dry Psychiatric: Orientation: alert, oriented x 3 and cooperative Results & Data Vital Signs (Past 12 Hours) Vital Signs Temp Pulse Pulse Resp BP BP Pulse Ox 01/28/19 17:35 76 20 127/86 97 01/28/19 16:26 73 20 107/63 100 01/28/19 13:43 37 C 101 H 20 123/97 97
--- NOTE | 2019-01-28 18:16 | Anesthesiology Consultation ---
Date of Service January 28, 2019 Assessment & Plan (1) Encounter for pre-operative examination: Chart Review Chart Review: Acceptable Risk for Surgery and Patient NOT seen in Pre Admission Testing Consults Requested none ASA [id number] Proposed Anesthesia Anesthesia Type: General Risk / Benefits Reviewed With: PT / POA / Parent / Guardian, Accepts Plan and Informed Consent Obtained History Surgery Operation Date: 01/28/19 14:25 Proposed Procedures p Laparoscopic Appendectomy - Joshua Millan, DO Height/Weight Height: 5 ft 4 in Weight: 67.2 kg Allergies Allergy/AdvReac Type Severity Reaction Status Date / Time Penicillins Allergy Severe rash Verified 01/28/19 10:45 pseudoephedrine Allergy Severe hallucinati Verified 01/28/19 10:45 ons Medications Home Medications Medication Instructions Recorded Confirmed Last Taken bupropion HCl [Wellbutrin SR] 100 mg PO DAILY 02/18/18 01/28/19 01/28/19 buspirone 30 mg PO BID 02/18/18 01/28/19 01/28/19 lamotrigine 200 mg PO BID 02/18/18 01/28/19 01/28/19 clonazepam 0.5 mg PO BID PRN 01/28/19 01/28/19 Unknown famotidine 20 mg PO BID #20 tab 01/28/19 01/28/19 Unknown prochlorperazine maleate 10 mg PO Q6H PRN #14 tab 01/28/19 01/28/19 Unknown Active Medications Generic Name Dose Route Start Last Admin Trade Name Freq PRN Reason Stop Dose Admin Ioversol 89 ml 01/28/19 17:02 01/28/19 17:02 Optiray 320 100ml IV 02/01/19 17:01 89 ml ONCE PRN Administration Interaction Checking NPO Date Last Intake of Fluids: 01/28/19 Time Last Intake of Fluids: 06:00 Date Last Intake of Solids: 01/27/19 Time Last Intake of Solids: 15:00 Past Medical History Medical History Anxiety (Acute) Bipolar disorder Exercise / Class Metabolic Activity II 4-5 Yardwork/Stairs/Walk up hill Past Family History Family History Other No pertinent family history in first degree relatives Past Anesthesia History No Hx of Anesthesia Complications and No Family Hx of Anesthesia Complications History of PONV No Hx of PONV and No Hx of Motion Sickness Social History Smoking Status: Never smoker Do You Dip or Chew Tobacco: No Hx Alcohol Use: No Hx Substance Use: No Physical Exam Vital Signs Last Vital Signs Temp 37 C 01/28/19 13:43 Pulse 70 01/28/19 18:20 Resp 20 01/28/19 18:20 BP 132/85 01/28/19 18:20 Pulse Ox 98 01/28/19 18:20 Testing Laboratory Results 01/28/19 15:07 01/28/19 15:07 hcg 01/28/10 negative
[2019-01-28] MEDS ORDERED: fentaNYL citrate 100 MCG/2 ML VIAL IV PRN (18:39)
[2019-01-28] MEDS ORDERED: ATROPINE SULFATE 0.1 MG/ML 10ML SYR IV PRN (18:39)
[2019-01-28] MEDS ORDERED: HYDROmorphone INJ 1 MG/ML SYRINGE IV PRN ×2 (18:39→20:30)
[2019-01-28] MEDS ORDERED: ONDANSETRON INJ 2 MG/ML 2 ML VIAL IV PRN ×2 (18:39→20:30)
[2019-01-28] MEDS ORDERED: CLINDAMYCIN PHOS 300 MG/2 ML VIAL ONE (18:55)
[2019-01-28] MEDS ORDERED: CLINDAMYCIN 600 MG/54 ML BAG IV SCH (19:30)
--- NOTE | 2019-01-28 19:41 | Operative Report ---
PG Post Operative Report Pre & Post Diagnosis Operation Date: 01/28/19 14:25 Pre-Op Diagnosis: Acute Appendicitis Post-Op Diagnosis: Acute Appendicitis Procedure Operation Date: 01/28/19 14:25 Actual Procedures p Laparoscopic Appendectomy(Not Applicable) - Joshua Millan DO Surgeon Joshua Millan DO Echocardiography Technologist n/a Estimated Blood Loss 2 Findings Consistent with Post-Op Diagnosis Specimens appendix Description of Procedure After informed consent was obtained the patient was taken to the operating room and placed in supine position. After successful intubation a Rodriguez catheter was placed and the left arm was tucked. A Rodriguez catheter was inserted sterilely. I began by making a periumbilical incision with an 11 blade scalpel and carried this down through the soft tissue using electrocautery. The anterior rectus fascia was opened using electrocautery and 2 #0 Vicryl stay sutures were placed. The peritoneum was elevated using hemostats and incised under direct vision using a Metzenbaum scissor. A finger sweep was performed. A 12 mm Nguyen trocar was placed and the abdomen was insufflated to 18 mmHg. A laparoscope was inserted and the abdomen was examined in 360. A suprapubic 5 mm port and a left lower quadrant 12 mm port were placed under direct vision. The patient was air planed to the left as well as placed in a slight Trendelenburg position. We began by looking in the right lower quadrant. We were able to readily identify the appendix and it was grossly inflamed. It had not perforated. There is a small amount of purulent fluid in the right lower quadrant and the pelvis. We immediately irrigated and suctioned this out. I was able to use primarily blunt dissection to pull the appendix away from the right lower quadrant sidewall. I was then able to use a ERIC brown cartridge stapler to transect the mesoappendix up to the base of the appendix itself. Next I was able to transect the appendix right at its junction with the cecum again with a ERIC 60 mm brown cartridge stapler. It was then placed into an Endo Catch bag and removed from the camera port site. We thoroughly irrigated the right lower quadrant as well as the pelvis. There was adequate hemostasis. I ran the small bowel backwards from the terminal ileum for about 6 feet all of which was normal. All the peritoneal surfaces were normal. Small/ large bowel, liver, stomach etc. all appeared grossly normal. We did a final irrigation and then removed all the trochars and desufflated the abdomen. The fascia of the camera port as well as the left lower quadrant were closed using 0 Vicryl in [id number] fashion. Wounds were all irrigated and closed using 4-0 Monocryl. Marcaine was injected around them for postoperative analgesia and skin glue used as a dressing. The patient was awakened extubated and transferred to recovery in stable condition. I attest to the content of the Intraoperative Record and any orders documented therein. Any exceptions are noted below.
[2019-01-28] MEDS ORDERED: ACETAMINOPHEN 1,000 MG/100 ML VIAL IV PRN (20:30)
[2019-01-28] MEDS ORDERED: PROCHLORPERAZINE MALEATE 10 MG TAB PO PRN (20:30)
[2019-01-28] MEDS ORDERED: IBUPROFEN 600 MG TAB PO PRN (20:30)
[2019-01-28] MEDS ORDERED: clonazePAM 0.5 MG TAB PO PRN (20:30)
[2019-01-28] MEDS ORDERED: HYDROmorphone INJ 0.5 MG/0.5 ML SYR IV PRN (20:30)
[2019-01-28] MEDS: LACTATED RINGER'S 1,000 ML IV SCH (21:35)
[2019-01-28] MEDS: OXYCODONE/ACETAMINOPHEN 5mg/325mg TAB PO PRN (21:36)
[2019-01-28] MEDS: BusPIRone 15 MG TAB PO SCH (21:43)
[2019-01-28] MEDS: lamoTRIgine 100 MG TAB PO SCH (21:44)
[2019-01-28] MEDS: FAMOTIDINE 20 MG TAB PO SCH (21:45)
[2019-01-29] MEDS: CLINDAMYCIN 600 MG in DEXTROSE 5% 50 ML IV SCH ×2 (02:21→09:58)
[2019-01-29] MEDS: LACTATED RINGER'S 1,000 ML IV SCH ×2 (05:34→14:23)
[2019-01-29] MEDS: OXYCODONE/ACETAMINOPHEN 5mg/325mg TAB PO PRN ×3 (05:55→12:37)
--- NOTE | 2019-01-29 08:21 | Surgery Progress Note ---
Date of Service January 29, 2019 Assessment & Plan (1) Acute appendicitis: pod 1 doing well d/w her and her mother...ok for d/c this am instructions given. Subjective pt seen. feeling much better. nadya liquids. Physical Exam Physical Exam: alert. nad abd: soft. expected tenderness. wounds look good. Results & Data Vital Signs (Past 12 Hours) Vital Signs Temp Pulse Pulse Pulse Resp BP BP 01/29/19 07:26 36.8 C 49 L 14 96/68 L 01/29/19 02:22 36.4 C L 68 14 102/64 01/28/19 23:38 37.0 C 98 H 14 115/71 01/28/19 22:38 37.2 C 70 16 113/69 01/28/19 21:46 36.6 C 72 16 113/72 01/28/19 21:14 36.9 C 75 16 118/73 01/28/19 20:34 36.9 C 63 14 113/72 Pulse Ox 01/29/19 07:26 97 01/29/19 02:22 98 01/28/19 23:38 98 01/28/19 22:38 96 01/28/19 21:46 98 01/28/19 21:14 99 01/28/19 20:34 100 PG Care Time/CCT Total # of Minutes Spent Total Time Spent with Patient: Total time spent is greater than 50% in coordination of care (as documented) at patient's floor/unit and/or counseling patient: (1) Acute appendicitis Acute appendicitis type: unspecified acute appendicitis type Qualified Code(s): K35.80 - Unspecified acute appendicitis
--- NOTE | 2019-01-29 08:22 | Discharge Summary ---
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 She presents this afternoon to the emergency room where work-up has revealed acute appendicitis on CAT scan. Principal Diagnosis Acute appendicitis Discharge Exam Gastrointestinal (Abdomen) Inspection/Auscultation: abdomen not distended Percussion/Palpation: abdomen soft Discharge Data Allergies Allergy/AdvReac Type Severity Reaction Status Date / Time Penicillins Allergy Severe rash Verified 01/28/19 10:45 pseudoephedrine Allergy Severe hallucinati Verified 01/28/19 10:45 ons Procedures Performed Operation Date: 01/28/19 14:25 Actual Procedures p Laparoscopic Appendectomy(Not Applicable) - Joshua Millan DO Ordered Studies 01/28/19 14:49 CT abd pelvis IV con only Stat Hospital Course (1) Acute appendicitis: 23 y/o female presented to ED with abdominal pain. White cell count was 13,[address] showed evidence of appendicitis. She was taken to the OR for laparoscopic appendectomy that evening and observed overnight on the surgical floor. In the morning she was able to advance diet and activity. She was stable for discharge. Total Time Total Time Spent Total Time Spent (In Minutes): 10 Discharge Plan Discharge Items Patient Disposition: Home - Self-Care Reason For Visit: ACUTE APPENDICITIS Discharge Diagnosis: appendectomy Activity: As commented below Lifting: No more than 10 pounds Bathing Comment: OK to shower Driving/Machine Use: Resume 3 days after discharge Non-emergency contact: Surgeon Call non-emergency contact if: you have any medication questions, your pain is not controlled, you have a fever, your temperature is above 101.5 and your wound has increased redness Follow-up/Referrals: Joshua Millan DO [Surgeon] - (Call to make an appt in approx 2 weeks) PCP,NO [Primary Care Provider] - Diet: Regular Addtl Attending Provider Instructions: Pending Studies at Discharge: No Stand-Alone [facility]School [facility] (Inpt) Medications and DC Order Prescriptions: New hydrocodone-acetaminophen [Superior] 5-325 mg tablet 1 - 2 tab PO Q4H PRN (Reason: pain, initial therapy) Qty: 15 RF: 0 Continued lamotrigine 200 mg Tablet 200 mg PO BID RF: 0 buspirone 30 mg Tablet 30 mg PO BID RF: 0 bupropion HCl [Wellbutrin SR] 100 mg Tablet Sustained-Release 12 Hr 100 mg PO DAILY RF: 0 clonazepam 0.5 mg tablet 0.5 mg PO BID PRN (Reason: Anxiety) RF: 0 prochlorperazine maleate 10 mg tablet 10 mg PO Q6H PRN (Reason: nausea and vomiting) Qty: 14 RF: 0 famotidine 20 mg tablet 20 mg PO BID Qty: 20 RF: 0 Discharge Orders: Discharge Order (Routine); Ordered 01/29/19 Ordered By: Chong Salcedo Jr Admission Data Admit Date/Time: 01/28/19 19:38 Attending Provider: Joshua Millan Admit Provider: Joshua Millan Primary Care Provider: PCPBLANCA
--- NOTE | 2019-01-29 08:48 | Anesthesiology Progress Note ---
Date of Service January 29, 2019 Anesthesia Post Procedure Vital Signs Vital Signs: Temp Pulse Pulse Pulse Pulse Pulse Resp 01/29/19 07:26 36.8 C 49 L 14 01/29/19 02:22 36.4 C L 68 14 01/28/19 23:38 37.0 C 98 H 14 01/28/19 22:38 37.2 C 70 16 01/28/19 21:46 36.6 C 72 16 01/28/19 21:14 36.9 C 75 16 01/28/19 20:34 36.9 C 63 14 01/28/19 20:15 37.2 C 62 12 01/28/19 20:05 66 18 01/28/19 19:55 74 19 01/28/19 19:45 85 23 01/28/19 19:39 37.0 C 102 H 16 01/28/19 18:20 70 20 01/28/19 17:35 76 20 01/28/19 16:26 73 20 01/28/19 13:43 37 C 101 H 20 BP BP BP Pulse Ox 01/29/19 07:26 96/68 L 97 01/29/19 02:22 102/64 98 01/28/19 23:38 115/71 98 01/28/19 22:38 113/69 96 01/28/19 21:46 113/72 98 01/28/19 21:14 118/73 99 01/28/19 20:34 113/72 100 01/28/19 20:15 123/73 99 01/28/19 20:05 121/69 99 01/28/19 19:55 121/66 100 01/28/19 19:45 133/81 94 01/28/19 19:39 143/73 H 94 01/28/19 18:20 132/85 98 01/28/19 17:35 127/86 97 01/28/19 16:26 107/63 100 01/28/19 13:43 123/97 97 Pain Intensity Right Abdomen: Pain Intensity: 4 Notes Mental Status: alert / awake / arousable and participated in evaluation Patient Amnestic to Procedure: Yes Nausea / Vomiting: adequately controlled Pain: adequately controlled Airway Patency, RR, SpO2: stable & adequate BP & HR: stable & adequate Hydration State: stable & adequate Anesthetic Complications: no major complications apparent and Pt Satisfied with anesthetic care
[2019-01-29] MEDS: BusPIRone 15 MG TAB PO SCH (08:50)
[2019-01-29] MEDS: lamoTRIgine 100 MG TAB PO SCH (08:50)
[2019-01-29] MEDS: FAMOTIDINE 20 MG TAB PO SCH (08:51)
[2019-01-29] MEDS ORDERED: INFLUENZA VIRUS QUAD VACCINE 0.5 ML SYR IM ONE (09:00)
[2019-01-29] MEDS ORDERED: INFLUENZA ADMINISTRATION CHARGE ONE (09:00)
[2019-01-29] MEDS ORDERED: BuPROPion SR 100 MG TABCR PO SCH (09:00)
== END 2019-01-29 15:10 | disposition home or self-care (01) ==
LOC: ED 13:36 → OR 18:22 → 3E 18:22